=== PATIENT | female | born 1990 | race Two or more races ===

== ENCOUNTER 2022-01-27 20:32 | Emergency (ER) | payer OTHER ==
[~2022-01-27] VITALS: Ht 162.6 cm; Wt 61.2 kg
[2022-01-28] MEDS ORDERED: ZITHROMAX500 MG PO (00:43)
== END 2022-01-28 00:54 | disposition home or self-care (01) ==
LOC: ER 20:32
DX: I88.8 Other nonspecific lymphadenitis (principal)